=== PATIENT | female | born 1980 | race Caucasian/White ===

== ENCOUNTER → 2016-11-30 | Outpatient (CLI) | payer BC, OTHER ==
[~2016-11-30] MED LIST: ASCAUNK; B-12 INJECTIONS; CALCTAB5 PO; CHOL400C7 PO; PRENTAB26 PO
[2016-11-30 13:09] LABS: BASO % 0.1 %; BASO ABS # 0.01 K/uL (0-0.2); COMPLETE YES; HEMATOCRIT 37.3 % (37-47); IG% 0.1 %; LYMPH % 35.5 %; LYMPH ABS # 2.81 K/uL (1.2-3.4); MEAN CELL VOLUME 84.2 fL (80-100); MEAN CORPUSCULAR HEMOGLOBIN 27.5 pg (25-34); MEAN CORPUSCULAR HGB CONC 32.7 g/dl (32-36); MEAN PLATELET VOLUME 10.1 fL (7.4-10.4); MONO % 9.1 %; NEUT % 54.2 %; PLATELET COUNT 394 K/uL (130-400); RED BLOOD COUNT 4.43 M/uL (4.2-5.4); WHITE BLOOD COUNT 7.92 K/uL (4.8-10.8)
[2016-11-30 13:48] LABS: ALT/SGPT 16 U/L (12-78); BLOOD UREA NITROGEN 13 mg/dl (7-18); BUN/CREATININE RATIO 18.4 (10-20); CARBON DIOXIDE 28 mmol/L (21-32); CHLORIDE 106 mmol/L (98-107); CHOLESTEROL 198 mg/dl (0-200); GLUCOSE 81 mg/dl (70-99); POTASSIUM 3.6 mmol/L (3.5-5.1); SODIUM 140 mmol/L (136-145); TRIGLYCERIDES 78 mg/dl (0-150); VERY LOW DENSITY LIPOPROT CALC 16 mg/dl
[2016-11-30 13:49] LABS: CALCIUM 9.3 mg/dl (8.5-10.1)
[2016-11-30 13:52] LABS: ALB/GLOB RATIO 0.8 (0.9-2); ALKALINE PHOSPHATASE 91 U/L (45-117); AST/SGOT 11 U/L (15-37); FERRITIN 9.1 ng/ml (8.0-388.0); HDL CHOLESTEROL 66 mg/dl; LDL CHOLESTEROL CALCULATED 116 mg/dl; TOTAL IRON BINDING CAPACITY 414 mcg/dl (250-450)
[2016-11-30 23:46] LABS: RUBELLA SCREEN IgG (AT CCH) IMMUNE (IMMUNE)
== END | disposition home or self-care (01) ==
LOC: C.LABMFLN 09:35
PROVIDERS: ATTEND Physician Assistant
DX: Z02.1 Encounter for pre-employment examination (principal)

== ENCOUNTER → 2017-02-15 | Outpatient (CLI) | payer BC | END | disposition home or self-care (01) | LOC: C.LABMFLN 16:34 | PROVIDERS: ATTEND Family Medicine | DX: J02.9 Acute pharyngitis, unspecified (principal) ==

== ENCOUNTER → 2017-04-12 | Outpatient (CLI) | payer BC ==
[2017-04-12 11:56] LABS: URINE APPEARANCE CLEAR (CLEAR); URINE BILIRUBIN NEG (NEG); URINE COLOR YELLOW; URINE NITRITE NEG (NEG); URINE PH 6.5 (4.5-7.5); URINE SPECIFIC GRAVITY 1.021 (1.000-1.030); UROBILINOGEN NEG (NEG)
[2017-04-12 12:03] LABS: MANUAL MICROSCOPIC REQUIRED? NO; REVIEW REQ? NO
== END | disposition home or self-care (01) ==
LOC: C.LABSPEC 11:18
PROVIDERS: ATTEND Obstetrics & Gynecology
DX: O09.521 Supervision of elderly multigravida, first trimester (principal)

== ENCOUNTER → 2017-04-19 | Outpatient (CLI) | payer BC ==
[2017-04-19 14:15] LABS: BASO % 0.2 %; BASO ABS # 0.02 K/uL (0-0.2); COMPLETE YES; EOS % 0.6 %; HEMATOCRIT 37.3 % (37-47); IG% 0.2 %; LYMPH % 27.9 %; LYMPH ABS # 2.42 K/uL (1.2-3.4); MEAN CORPUSCULAR HEMOGLOBIN 27.7 pg (25-34); MEAN CORPUSCULAR HGB CONC 33.8 g/dl (32-36); MEAN PLATELET VOLUME 10.7 fL (7.4-10.4); MONO % 7.7 %; NEUT % 63.4 %; PLATELET COUNT 433 K/uL (130-400); RED BLOOD COUNT 4.55 M/uL (4.2-5.4); WHITE BLOOD COUNT 8.68 K/uL (4.8-10.8)
== END | disposition home or self-care (01) ==
LOC: C.LAB1850 12:35
PROVIDERS: ATTEND Obstetrics & Gynecology
DX: Z01.419 Encounter for gynecological examination (general) (routine) without abnormal findings (principal); O09.521 Supervision of elderly multigravida, first trimester

== ENCOUNTER → 2017-04-19 | Outpatient (CLI) | payer BC ==
[2017-04-22 10:12] LABS: CHLAMYDIA TRACH RNA*** NOT DETECTED (NOT DETECTED); GC (NEIS GONORRHOEAE)RNA** NOT DETECTED (NOT DETECTED)
== END | disposition home or self-care (01) ==
LOC: C.LABSPEC 17:07
PROVIDERS: ATTEND Obstetrics & Gynecology
DX: O09.521 Supervision of elderly multigravida, first trimester (principal)

== ENCOUNTER → 2017-04-19 | Outpatient (CLI) | payer BC | END | disposition home or self-care (01) | LOC: C.PAPS 16:56 | PROVIDERS: ATTEND Obstetrics & Gynecology | DX: Z01.419 Encounter for gynecological examination (general) (routine) without abnormal findings (principal) ==

== ENCOUNTER → 2017-06-14 | Outpatient (CLI) | payer BC ==
[2017-06-14 17:53] LABS: GTGD 50 Grams
[2017-06-19 14:17] LABS: AFP CONCENTRATION 22.3 NG/ML; AFP MULTIPLE OF MEDIAN 0.91; AFPTS GESTATIONAL AGE 16.7 WEEKS; AFPTS INSULIN DEP DIABETIC? NO; AFPTS MATERNAL WT 281 LBS; ALPHA-FETOPROTEIN RACE CAUCASIAN=W; CIGARETTE SMOKER? NOT PROVIDED; EDD DETERMINED BY ULTRASOUND; HISTORY OF NTD NO; REPEAT SAMPLE? NO
== END | disposition home or self-care (01) ==
LOC: C.LAB1850 16:10
PROVIDERS: ATTEND Obstetrics & Gynecology
DX: O09.522 Supervision of elderly multigravida, second trimester (principal)

== ENCOUNTER → 2017-09-06 | Outpatient (CLI) | payer BC ==
[2017-09-06 17:30] LABS: HEMATOCRIT 32.6 % (37-47); HEMOGLOBIN 10.8 g/dL (12.0-16.0)
== END | disposition home or self-care (01) ==
LOC: C.LAB1850 16:57
PROVIDERS: ATTEND Obstetrics & Gynecology
DX: O09.523 Supervision of elderly multigravida, third trimester (principal)

== ENCOUNTER 2017-09-26 15:00 | Emergency (ER) | payer BC ==
[~2017-09-26] VITALS: Ht 154.9 cm; Wt 135.0 kg
[~2017-09-26 15:00] MED LIST changes: -PRENTAB26 PO
[2017-09-26 15:02] VITALS: TEMP 37; Ht 154.9 cm; Wt 135.0 kg
[2017-09-26] MEDS ORDERED: CYNI1000 IM (15:19)
[2017-09-26] MEDS ORDERED: FERRTAB18 PO (15:19)
[2017-09-26] MEDS ORDERED: HYDR1INJ12 IM (15:19)
[2017-09-26] MEDS ORDERED: SODIUM CHLORIDE 0.9% 1000ML 1,000 ML IV STA (15:41)
[2017-09-26 16:08] LABS: EOS % 0.1 %; EOS ABS # 0.01 K/uL (0-0.5); HEMOGLOBIN 11.4 g/dL (12.0-16.0); IG# 0.08 K/uL (0.00-0.02); LYMPH % 8.8 %; LYMPH ABS # 1.53 K/uL (1.2-3.4); MEAN CELL VOLUME 81.5 fL (80-100); MEAN CORPUSCULAR HEMOGLOBIN 27.3 pg (25-34); MEAN CORPUSCULAR HGB CONC 33.5 g/dl (32-36); MONO % 5.7 %; MONO ABS # 0.99 K/uL (0.11-0.59); NEUT % 84.9 %; PLATELET COUNT 410 K/uL (130-400); RED CELL DISTRIBUTION WIDTH CV 13.8 % (11.5-14.5); RED CELL DISTRIBUTION WIDTH SD 40.7 fL (36.4-46.3); WHITE BLOOD COUNT 17.31 K/uL (4.8-10.8)
[2017-09-26 16:23] LABS: ALBUMIN 2.5 gm/dl (3.4-5.0); CALCIUM 8.9 mg/dl (8.5-10.1); CREATININE 0.51 mg/dl (0.60-1.20); POTASSIUM 3.2 mmol/L (3.5-5.1); URIC ACID 3.7 mg/dl (2.6-7.2)
[2017-09-26 16:34] LABS: TOTAL PROTEIN 6.9 gm/dl (6.4-8.2)
[2017-09-26 17:03] VITALS: BP 177/117; PULSE 106; O2SAT 98
--- NOTE | 2017-09-26 17:05 | EMERGENCY ROOM VISIT NOTE ---
History First contact with patient: 15:18 Chief Complaint: VOMITING Stated Complaint: SUDDEN NIVID,31 WEEKS WITH CONTRACTIONS Nursing Triage Summary: HAS BEEN NAUSEATED SINCE NOT EATING BUT WHEN SHE EATS EMESIS History of Present Illness The patient is a 36 year old female who presents to the Emergency Room via private vehicle accompanied by female with complaints of "sudden onset nausea, vomiting, diarrhea around 11:30 AM". The patient states that she is 31 weeks and also has been experiencing contractions with this. She states she also has some epigastric abdominal pain. The gallbladder is surgically absent. She states that she has been trying to tolerate p.o. fluids and food without success. She has had watery diarrhea. There is been 8-9 episodes and has been light brown in nature. She took Tylenol this morning around 8 or 9 AM. She has associated chills, headache and sharp abdominal pain inferiorly with crampy sensation inferiorly that is progressing and lasting about 15 seconds in duration. She denies any fevers, melena, hematochezia, hematemesis, vaginal bleeding, vaginal discharge, urinary symptoms. She denies any decrease in activity. She has a history of ventral hernia and pernicious anemia. Review of Systems A complete 10-point Review of Systems was discussed with the patient, with pertinent positives and negatives listed in the History of Present Illness. All remaining Review of Systems questions can be considered negative unless otherwise specified. Past Medical/Surgical History Medical Problems: (1) Current/Historical Medications Scheduled Cyanocobalamin (Cyanocobalamin), 1,000 MCG IM Mo Hydroxyprogesterone Caproate (Sol), 750 MG IM WK Iron-Vitamin C (Vitron-C), 1 TAB PO DAILY Multivit/Min/Iron/Fol Ac/Pren ( Vitamin), 1 TAB PO DAILY Physical Exam Vital Signs Date Time Temp Pulse Resp B/P (MAP) Pulse Ox O2 Delivery O2 Flow Rate FiO2 09/26/17 17:03 98 Room Air 09/26/17 17:03 106 16 177/117 98 Room Air 09/26/17 15:02 37.0 135 22 156/102 99 Physical Exam VITAL SIGNS - Vital signs and nursing notes were reviewed. Hypertensive and tachycardic upon arrival. She is afebrile. GENERAL -36-year-old female appearing her stated age who is in no acute distress. Communicates well with provider and answers questions appropriately. SKIN - Without rashes. No petechial rashes. HEAD - NC/AT. EYES - Sclera anicteric. EARS - No deformities of external structures noted on gross examination bilaterally. NOSE - Midline and without cyanosis. No epistaxis or purulent drainage noted. MOUTH/OROPHARYNX - Without perioral cyanosis. NECK - Neck with FROM. LUNGS - Chest wall symmetric without accessory muscle use, intercostals retractions, or central cyanosis. Normal vesicular breath sounds CTA B/L. No wheezes, rales, or rhonchi appreciated. CARDIAC - RRR with S1/S2. No murmur, rubs, or gallops appreciated. ABDOMEN - Abdominal contour with evidence of gestation without pulsations or visible masses. BS normoactive all four quadrants. Epigastric abd pain noted.No unusual palpable masses, hepatosplenomegaly, or ascites noted. EXTREMITIES - No clubbing or peripheral cyanosis. No pretibial edema present. NEUROLOGIC - Cranial nerves II through XII grossly intact. Medical Decision & Procedures Laboratory Results 09/26/17 15:55 Red Blood Count 4.17, Mean Corpuscular Volume 81.5, Mean Corpuscular Hemoglobin 27.3, Mean Corpuscular Hemoglobin Concent 33.5, Mean Platelet Volume 10.0, Neutrophils (%) (Auto) 84.9, Lymphocytes (%) (Auto) 8.8, Monocytes (%) (Auto) 5.7, Eosinophils (%) (Auto) 0.1, Basophils (%) (Auto) 0.0, Neutrophils # (Auto) 14.70, Lymphocytes # (Auto) 1.53, Monocytes # (Auto) 0.99, Eosinophils # (Auto) 0.01, Basophils # (Auto) 0.00 09/26/17 15:55 Test 09/26/17 15:55 09/26/17 17:20 White Blood Count 17.31 K/uL (4.8-10.8) Red Blood Count 4.17 M/uL (4.2-5.4) Hemoglobin 11.4 g/dL (12.0-16.0) Hematocrit 34.0 % (37-47) Mean Corpuscular Volume 81.5 fL (80-100) Mean Corpuscular Hemoglobin 27.3 pg (25-34) Mean Corpuscular Hemoglobin Concent 33.5 g/dl (32-36) Platelet Count 410 K/uL (130-400) Mean Platelet Volume 10.0 fL (7.4-10.4) Neutrophils (%) (Auto) 84.9 % Lymphocytes (%) (Auto) 8.8 % Monocytes (%) (Auto) 5.7 % Eosinophils (%) (Auto) 0.1 % Basophils (%) (Auto) 0.0 % Neutrophils # (Auto) 14.70 K/uL (1.4-6.5) Lymphocytes # (Auto) 1.53 K/uL (1.2-3.4) Monocytes # (Auto) 0.99 K/uL (0.11-0.59) Eosinophils # (Auto) 0.01 K/uL (0-0.5) Basophils # (Auto) 0.00 K/uL (0-0.2) RDW Standard Deviation 40.7 fL (36.4-46.3) RDW Coefficient of Variation 13.8 % (11.5-14.5) Immature Granulocyte % (Auto) 0.5 % Immature Granulocyte # (Auto) 0.08 K/uL (0.00-0.02) Anion Gap 10.0 mmol/L (3-11) Est Creatinine Clear Calc Drug Dose 197.1 ml/min Estimated GFR () 142.4 Estimated GFR (Non- 122.8 BUN/Creatinine Ratio 19.9 (10-20) Uric Acid 3.7 mg/dl (2.6-7.2) Calcium Level 8.9 mg/dl (8.5-10.1) Magnesium Level 1.8 mg/dl (1.8-2.4) Total Bilirubin 0.3 mg/dl (0.2-1) Aspartate Amino Transf (AST/SGOT) 15 U/L (15-37) Alanine Aminotransferase (ALT/SGPT) 13 U/L (12-78) Alkaline Phosphatase 114 U/L (45-117) Total Protein 6.9 gm/dl (6.4-8.2) Albumin 2.5 gm/dl (3.4-5.0) Globulin 4.4 gm/dl (2.5-4.0) Albumin/Globulin Ratio 0.6 (0.9-2) Lipase 128 U/L (73-393) Thyroid Stimulating Hormone (TSH) 1.050 uIu/ml (0.300-4.500) Date/Time Source Procedure Growth Status 09/26/17 16:10 Stool C.difficile Toxin B Gene (PCR) - Final No C. difficile toxin B gene detected Complete Medications Administered Medications (Trade) Dose Ordered Sig/Britt Route Start Time Stop Time Status Last Admin Dose Admin Sodium Chloride 1,000 ml @ 999 mls/hr Q1H1M STAT IV 09/26/17 15:41 09/26/17 16:41 DC 09/26/17 15:41 999 MLS/HR Medical Decision Patient was seen and evaluated as above. She presents to us today with nausea, vomiting and diarrhea with abrupt onset around 11:30 AM with associated epigastric abdominal pain and lower pelvic contractions. She declines pain medication and nausea medication. She was given fluids. After obtaining a thorough history and physical examination the above work up was performed. Leukocytosis of 17.31. No emergent anemia. Metabolic panel does not reveal any evidence of kidney or liver failure. Platelet count high at 410. Potassium 3.2. Creatinine at 0.51. TSH and lipase normal. Urine reveals 1+ ketones and epithelial cells. From emergency department standpoint I suspect that she is likely experiencing a viral GI bug. I did discuss the case with the on-call FREELANCE PROGRAMMER/APP DEVELOPER who accepted the patient to the labor and delivery for further evaluation for her contractions. After nearly 1 L of fluid here the patient's tachycardia improved. Her hypertension did persist. Uric acid negative. She was discharged from the emergency department with escort to take her to the floor for continuation of fluids and management. In the evaluation and treatment of this patient the following differential diagnoses were entertained: Viral GI illness, pancreatitis, active labor, appendicitis, preeclampsia, UTI, among others. Impression Primary Impression: Nausea, vomiting, and diarrhea Additional Impression: 31 weeks gestation of Departure Information Dispostion Home / Self-Care Condition GOOD Referrals Bernie Lozoya M.D. (PCP) Patient Instructions [facility] Additional Instructions You were seen in the emergency department for epigastric abdominal pain, nausea , vomiting, diarrhea and contractions. At this time you will be discharged from the emergency department to go to the labor and delivery floor for evaluation by 1 of the obstetricians. I do recommend going directly there. Please return with any new/concerning symptoms. Thank you for your time. Problem Qualifiers
[2017-09-26] MEDS ORDERED: PRENTAB26 PO (18:23)
[2017-09-26] MEDS ORDERED: CALC500C70 PO (19:18)
--- NOTE | 2017-09-27 13:17 | Pharmacy Progress Note ---
ED Pharmacist Culture FollowUp Date of Service: Sep 27, 2017. Received notification from micro that patient's stool cx is growing campylobacter species. Patient had presented with NVD yesterday as well as contractions (she is 31 weeks ). Patient was not discharged to home from the ED rather she was admitted to [facility]. I contacted [facility] regarding these results. The patient had been hydrated and discharged home today. The RN will notify Dr Branch of these cx stool results. No further action required from ED standpoint.
== END 2017-09-26 17:40 | disposition home or self-care (01) ==
LOC: C.EDB 15:01
DX: R11.2 Nausea with vomiting, unspecified (principal); R19.7 Diarrhea, unspecified; O09.523 Supervision of elderly multigravida, third trimester

== ENCOUNTER 2017-09-26 17:48 | Observation (INO) | payer BC ==
[~2017-09-26] VITALS: Ht 154.9 cm; Wt 134.5 kg
[~2017-09-26 17:48] MED LIST changes: +CYNI1000 IM; +FERRTAB18 PO; +HYDR1INJ12 IM
[2017-09-26] MEDS ORDERED: ACETAMINOPHEN 1000 MG/100 ML IV IV STA (18:13)
[2017-09-26] MEDS ORDERED: PRENTAB26 PO (18:23)
[2017-09-26] MEDS ORDERED: IV FLUIDS COMPLETED PRN (18:30)
[2017-09-26] MEDS: NSS + 20MEQ KCL 1000ML 1,000 ML IV SCH ×2 (18:46→23:11)
[2017-09-26 19:18] VITALS: Ht 154.9 cm; Wt 134.5 kg
[2017-09-26] MEDS ORDERED: CALC500C70 PO (19:18)
--- NOTE | 2017-09-27 04:44 | Discharge Instructions ---
Discharge Instructions Date of Service Sep 27, 2017. Admission Gastroenteritis, Uterine contractions Discharge Discharge Diagnosis / Problem: Gastroenteritis, resolution of contractions Discharge Goals Goal(s): Continuing OB care Activity Recommendations Activity Limitations: resume your previous activity . Instructions / Follow-Up Instructions / Follow-Up Continue to sip diluted gatorade until diarrhea resolves. Monitor movements and notify OB if unable to feel 10 movements in an hour. Notify OB if contractions return and become closer than 5 minutes apart. Current Hospital Diet Patient's current hospital diet: Regular Diet Discharge Diet Recommended Diet: Regular Diet Pending Studies Studies pending at discharge: no Medical Emergencies . Who to Call and When: Medical Emergencies: If at any time you feel your situation is an emergency, please call 911 immediately. . Non-Emergent Contact Non-Emergency issues call your: Primary Care Provider . . "Provider Documentation" section prepared by Destini Ga. .
== END 2017-09-27 04:55 | disposition home or self-care (01) ==
LOC: C.LD 17:48 → C.OPB 17:48 → C.LD 18:00
PROVIDERS: ADMIT Obstetrics & Gynecology; ATTEND Obstetrics & Gynecology
DX: O09.523 Supervision of elderly multigravida, third trimester (principal); K52.9 Noninfective gastroenteritis and colitis, unspecified; O99.213 Obesity complicating pregnancy, third trimester; E66.01 Morbid (severe) obesity due to excess calories; Z3A.31 31 weeks gestation of pregnancy

== ENCOUNTER → 2017-10-03 | Outpatient (CLI) | payer BC ==
[~2017-10-03] MED LIST changes: -ASCAUNK; -B-12 INJECTIONS; +CALC500C70 PO; -CALCTAB5 PO; -CHOL400C7 PO; -CYNI1000 IM; +PRENTAB26 PO
== END | disposition home or self-care (01) ==
LOC: C.LABSPEC 17:00
PROVIDERS: ATTEND Obstetrics & Gynecology
DX: O47.9 False labor, unspecified (principal)

== ENCOUNTER → 2017-10-28 | Outpatient (CLI) | payer BC | END | disposition home or self-care (01) | LOC: C.LABSPEC 11:39 | PROVIDERS: ATTEND Obstetrics & Gynecology | DX: O09.523 Supervision of elderly multigravida, third trimester (principal) ==

== ENCOUNTER 2017-11-04 23:07 | Outpatient (CLI) | payer BC ==
[~2017-11-04] VITALS: Ht 154.9 cm; Wt 135.0 kg
[2017-11-04 23:50] VITALS: Ht 154.9 cm; Wt 135.0 kg
== END 2017-11-05 00:07 | disposition home or self-care (01) ==
LOC: C.OPB 23:07 → C.LD 23:09 → C.OPB 11-05 00:07
PROVIDERS: ATTEND Obstetrics & Gynecology
DX: Z34.83 Encounter for supervision of other normal pregnancy, third trimester (principal); Z3A.37 37 weeks gestation of pregnancy

== ENCOUNTER 2017-11-14 21:28 | Inpatient (IN) | payer BC ==
[~2017-11-14] VITALS: Ht 154.9 cm; Wt 130.0 kg
[~2017-11-14 21:28] MED LIST changes: -HYDR1INJ12 IM
[2017-11-14] MEDS ORDERED: LACTATED RINGER'S 1000ML 1,000 ML IV SCH (22:06)
[2017-11-14 22:15] VITALS: Ht 154.9 cm; Wt 130.0 kg
[2017-11-14] MEDS ORDERED: BUPIVACAINE 0.25% 30 ML VIAL ONE (22:20)
[2017-11-14] MEDS ORDERED: EpHEDrine SULFATE INJ 50 MG/ML AMP ONE (22:20)
[2017-11-14] MEDS ORDERED: FENTANYL CITRATE INJ 50 MCG/1 ML 2 ML VIAL ONE (22:21)
[2017-11-14] MEDS ORDERED: FENTANYL 2MCG/ML ROPIV 1.25MG/ML 100ML BAG EPI ONE (22:22)
[2017-11-14] MEDS: LACTATED RINGER'S 1000ML 1,000 ML IV PRN ×2 (22:30→23:30)
[2017-11-14] MEDS ORDERED: HYDR1INJ12 IM (22:35)
[2017-11-14 22:39] LABS: HEMATOCRIT 35.4 % (37-47); HEMOGLOBIN 11.5 g/dL (12.0-16.0); MEAN CELL VOLUME 78.7 fL (80-100); MEAN CORPUSCULAR HEMOGLOBIN 25.6 pg (25-34); MEAN CORPUSCULAR HGB CONC 32.5 g/dl (32-36); MEAN PLATELET VOLUME 10.4 fL (7.4-10.4); PLATELET COUNT 420 K/uL (130-400); RED CELL DISTRIBUTION WIDTH CV 14.3 % (11.5-14.5); RED CELL DISTRIBUTION WIDTH SD 40.2 fL (36.4-46.3); WHITE BLOOD COUNT 12.96 K/uL (4.8-10.8)
[2017-11-14] MEDS ORDERED: CEFAZOLIN IV 2,000 MG in SYRINGE 0 ML IV SCH (22:45)
[2017-11-14] MEDS ORDERED: CEFAZOLIN IV 2,000 MG in DEXTROSE 5% 50ML 50 ML IV ONE (22:45)
[2017-11-14] MEDS ORDERED: CEFAZOLIN IV 1,000 MG in DEXTROSE 5% 50ML 50 ML IV PRN (22:45)
[2017-11-14] MEDS ORDERED: CEFAZOLIN IV 1,000 MG in SYRINGE 0 ML IV PRN (23:00)
[2017-11-15] MEDS ORDERED: LACTATED RINGER'S 1000ML 500 ML IV PRN ×2 (00:04→04:33)
[2017-11-15] MEDS ORDERED: NALOXONE HCL INJ 1 MG in SODIUM CHLORIDE 0.9% 1000ML 1,000 ML IV PRN ×4 (00:04)
[2017-11-15] MEDS ORDERED: ONDANSETRON INJ 2 MG/ML 2 ML VIAL IV PRN (00:15)
[2017-11-15] MEDS ORDERED: NALBUPHINE HCL INJ 10 MG/ML AMP IV PRN (00:15)
[2017-11-15] MEDS ORDERED: EpHEDrine SULFATE INJ 50 MG/ML AMP IV PRN (00:15)
[2017-11-15] MEDS ORDERED: FENTANYL 2MCG/ML ROPIV 1.25MG/ML 100ML BAG EPI PRN (00:15)
[2017-11-15] MEDS ORDERED: PROMETHAZINE HCL INJ 25 MG in SODIUM CHLORIDE 0.9% 50ML 50 ML IV PRN (00:15)
[2017-11-15] MEDS ORDERED: NALOXONE HCL INJ 0.4 MG/1 ML VIAL/CARP IV PRN (00:15)
[2017-11-15] MEDS ORDERED: DiphenhydrAMINE HCL 50 MG/ML VIAL IV PRN (00:15)
[2017-11-15] MEDS ORDERED: OXYTOCIN 30 UNITS/500ML NSS IV ONE (02:33)
[2017-11-15] MEDS ORDERED: OXYTOCIN 30 UNITS/500ML NSS IV PRN ×2 (04:45→06:45)
[2017-11-15] MEDS ORDERED: ACETAMINOPHEN/CODEINE 300/30MG TAB PO PRN ×2 (06:45)
[2017-11-15] MEDS ORDERED: DIPHTHERIA/TETANUS/PERTUSSIS 0.5 ML SYR/VIAL IM. ONE (06:45)
[2017-11-15] MEDS ORDERED: BENZOCAINE 20% AER SPR 82.5 GM CAN EXT PRN ×2 (06:45→15:30)
[2017-11-15] MEDS ORDERED: LANOLIN OINT EXT PRN ×2 (06:45→15:30)
[2017-11-15] MEDS ORDERED: HYDROCORTISONE ACETATE 25 MG SUPP PR PRN ×2 (06:45→15:30)
[2017-11-15] MEDS ORDERED: SUPERCREAM 0.870 % 15GM JAR EXT PRN ×2 (06:45→15:30)
--- NOTE | 2017-11-15 07:59 | DELIVERY SUMMARY ---
DATE OF OPERATION: 11/15/2017 FINDINGS: Viable female with Apgars of 8 and 9. Baby delivered spontaneously over a midline second-degree laceration. Cord blood samples obtained. Placenta delivered spontaneously. Laceration repaired with 4-0 Vicryl in routine fashion. ESTIMATED BLOOD LOSS: 300 mL. LABOR NOTE: The patient is a 37-year-old 4, para 3 with an EDC of 11/24/2017 by first trimester ultrasound who was admitted at 38+ weeks gestational age in active labor. The patient states that contractions began in intensity at approximately 1830 hours on day of admission. The patient denied rupture of membranes or vaginal bleeding. The patient with a previous history of a successful in 2011. She had a section in 2006 for failure to progress. Her initial delivery was a vaginal delivery in 2003. The patient has been followed with the advanced maternal age protocol with normal third trimester testing. Laboratory values for the show a blood type of A positive, antibody negative, rubella immune, hepatitis B negative. She had a negative cell-free DNA screening with a normal 1-hour Glucola x2 and a positive third trimester beta strep culture. Upon admission, the patient was 5 cm dilated, 100% effaced, and -2 station. Tracing was category 1. The patient with GBS positive and PENICILLIN ALLERGY WITH HIVES. We discussed this and we treated this with cephalosporin, Ancef 2 g IV loading dose and then 1 g IV every 6 hours until delivery. The patient requested and received an epidural from anesthesia. Following placement of the epidural, she had artificial rupture of membranes for clear fluid at 7 cm. Three hours later, the patient with an anterior lip, contractions were mild, and Pitocin augmentation was initiated. After initiation of the Pitocin, she progressed to full dilatation and began her second stage. She pushed for approximately 20 minutes delivering the viable female . Cord was clamped and cut. Cord blood sample was obtained. Placenta delivered spontaneously. Inspection of the perineum showed a midline second-degree laceration. Laceration was repaired with 4-0 Vicryl in routine fashion. Estimated blood loss 300 mL. I attest to the content of the Intraoperative Record and any orders documented therein. Any exception s are noted below.
[2017-11-15] MEDS: DOCUSATE SODIUM 100 MG CAP PO SCH ×2 (08:00→20:58)
[2017-11-15] MEDS: PRENATAL VITAMIN TAB PO SCH (08:00)
[2017-11-15] MEDS: FERROUS SULFATE 325 MG TAB PO SCH (08:00)
[2017-11-15 10:25] VITALS: BP 139/75; PULSE 88; TEMP 36.6; O2SAT 96
[2017-11-15 12:15] VITALS: BP 153/79; PULSE 94; TEMP 36.7; O2SAT 97
[2017-11-15] MEDS: ACETAMINOPHEN 325 MG TAB PO PRN ×2 (12:51→20:59)
[2017-11-15] MEDS ORDERED: OXYCODONE/ACETAMINOPHEN 5-325 TAB PO PRN ×2 (14:15→15:30)
[2017-11-15 15:30] VITALS: BP 139/83; PULSE 88; TEMP 36.5
[2017-11-15] MEDS ORDERED: ACETAMINOPHEN 325 MG TAB PO PRN (15:30)
--- NOTE | 2017-11-15 16:31 | Anesthesia Procedure Note ---
Anesthesia Epidural Removal Nt Date & Time Nov 15, 2017 at 16:30 Vital Signs Pain Intensity: 3.0 Vital Signs Past 12 Hours Date Time Temp Pulse Resp B/P (MAP) Pulse Ox O2 Delivery O2 Flow Rate FiO2 11/15/17 12:15 36.7 94 20 153/79 (103) 97 Room Air 11/15/17 10:25 96 Room Air 11/15/17 10:25 36.6 88 18 139/75 (96) 96 Room Air Notes Mental Status: alert / awake / arousable, participated in evaluation Nausea / Vomiting: adequately controlled Pain: adequately controlled Airway Patency, RR, SpO2: stable & adequate BP & HR: stable & adequate Hydration State: stable & adequate Neuraxial Anesthesia: was administered, sensory block is resolving Anesthetic Complications: no major complications apparent, pt satisfied with anesthetic care Epidural: removed without complications, with tip intact
[2017-11-15] MEDS ORDERED: DOCUSATE SODIUM 100 MG CAP PO SCH (20:00)
[2017-11-15 20:45] VITALS: BP 139/88; PULSE 86; TEMP 36.9
[2017-11-15 23:35] VITALS: BP 131/84; PULSE 87; TEMP 36.7
[2017-11-16 04:30] VITALS: BP 132/84; PULSE 76; TEMP 36.6
[2017-11-16] MEDS: ACETAMINOPHEN 325 MG TAB PO PRN ×2 (04:45→08:35)
--- NOTE | 2017-11-16 06:37 | Discharge Instructions ---
Discharge Instructions Date of Service Nov 16, 2017. Admission Reason for Admission: Check Labor Discharge Discharge Diagnosis / Problem: vaginal delivery Discharge Goals Goal(s): Routine recovery after delivery Medications Continue Dispensed Medications: supercream, dermaplast, tucks, lansinoh Activity Recommendations Activity Limitations: per Instructions/Follow-up section . Instructions / Follow-Up Instructions / Follow-Up ACTIVITY RECOMMENDATIONS: * Gradual return to full activity over the next 2-3 weeks. * No lifting - nothing heavier than baby over the next 2-3 weeks. * Do not engage in vigorous exercise, sexual activity or sports until cleared by your physician. * Do not drive or operate any motorized equipment until cleared by your physician. * You may shower/bathe daily. MEDICATIONS: For discomfort or pain, you may use Acetaminophen (Tylenol), Ibuprofen (Advil), or Naproxen (Aleve) following the package directions. For constipation you may use Colace following the package directions. BREAST CARE: If you are not breast feeding: * Wear a supportive bra 24 hours a day for one to two weeks. * Avoid stimulating your breasts and nipples as much as possible during the first few weeks after delivery. * When taking a shower, have the warm water hit your back, not breasts. * When your breasts feel full, apply ice packs. Usually three to four times a day helps ease the discomfort. * Take a mild pain medication (Tylenol / Motrin) when you are uncomfortable. If breast feeding: * Use breast milk to lubricate nipples. Lansinoh cream may be used for sore nipples. You do not need to remove cream prior to breast feeding. If using a different brand of cream, check the label for directions regarding removal of cream prior to nursing. * Wear a supportive bra. * If having problems with breasts or breast feeding, call a mobile sales consultant or your health care provider. EPISIOTOMY CARE: After delivery, if you have an episiotomy (stitches), the following steps will ease discomfort and aid healing. * For the first 24 hours after delivery, place ice packs next to your episiotomy to help reduce swelling. * After the first 24 hour-period, sitz baths, either portable or in the tub, are suggested. A shower with a shower arm sprayed over the episiotomy may be comforting. * [place] care should be done after each voiding and bowel movement. Squirt warm water from a plastic bottle over the perineum (region of the body between the anus and urinary opening) and pat dry. * Use Dermoplast to ease discomfort. Shake container. [place] directly over the episiotomy. Place a Tucks on a clean sanitary pad next to your episiotomy. SPECIAL CARE INSTRUCTIONS: When you are discharged from the hospital, it is important for you to follow the instructions listed below: * During the first week at home, you should be able to care for yourself and your baby. In addition, the usual light household activities are encouraged. * Limit your activities to the way you feel. Do not try to clean the house or move furniture. Be sensible. * If you actively engage in sports and have done so up until the time of your delivery, you may resume these activities as soon as you feel able. This may take up to one month or even longer. Use good judgment. * Continue to take your vitamins for at least six weeks after the of your baby. * Your diet need not be limited unless you were on a special diet before your delivery. Breast-feeding mothers need around 2500 calories per day and at least 64-80 ounces of fluid per day (8 to 10 glasses). * You should eat foods from the four major food groups. Crash diets or fad diets are to be avoided. Eating lean meats, fresh fruits and vegetables, low-fat dairy products, high fiber foods and a regular exercise program, will help you get back to your pre- weight without putting your health at risk. * Constipation is sometimes a problem after delivery. Take a mild laxative as needed. If breast feeding, Milk of Magnesia is acceptable to use. You may use a suppository or Fleets enema if no episiotomy. * A daily shower or tub bath is suggested. Be sure to thoroughly and gently dry the perineum. * A bloody vaginal discharge will usually continue until around four weeks post . A small amount of bleeding may continue for as long as six weeks. Vaginal discharge changes from the bright red bleeding after delivery to pink then brownish and finally yellowish-pink before becoming white and disappearing. * Bleeding may increase with activity. Your first period may come in 4-8 weeks. If you are breast feeding, your period may be delayed even longer. * [place] (sex) can begin whenever both you and your partner feel comfortable and do not have any form of genital infection. It is recommended that you wait at least six weeks for internal and external healing to occur. If you have questions, please talk to your health care practitioner. A condom should be used to prevent infection and . * Foreplay, gentle intercourse and lubrication is very important the first several times to prevent pain. A water-based lubricant such as K-Y jelly or Astroglide may be used. * If you have RH negative blood and your baby is RH positive, you will receive RHOGAM by injection prior to discharge. The nurse will give you a card to keep with you that has the date and place that you received RHOGAM after delivery. * During your care, you had a Rubella screen done to check for the presence of rubella antibodies in your blood. If your test was negative, you will receive a Rubella vaccine prior to discharge. This vaccine may cause a fever, soreness at the injection site and flu-like symptoms. If these symptoms persist, notify your health care practitioner. is not advised for one month after a Rubella vaccine. * Verbalizes understanding of car seat law as reviewed with patient nursing. * Car Seat hand-out given and reviewed with patient by nursing. * Shaken baby information reviewed with patient by nursing. Call you doctor if: * Heavy bleeding (saturating several pads an hour) or passing clots the size of your fist. * A fever >101 degrees F (38.3 degrees C) on two occasions four hours apart and /or chills. * Unusual pain in the pelvic or vaginal areas. * "Baby Blues" lasting longer than two weeks. If you have any questions or concerns, call your health care practitioner at . FOLLOW UP VISIT: * Please call the office at to schedule a 6 week examination. It is important you keep this appointment. It is important for you to make arrangements for either yearly or twice yearly check-ups thereafter. Current Hospital Diet Patient's current hospital diet: Regular OB Diet Discharge Diet Recommended Diet: Regular Diet, Regular OB Diet Pending Studies Studies pending at discharge: no Medical Emergencies . Who to Call and When: Medical Emergencies: If at any time you feel your situation is an emergency, please call 911 immediately. . Non-Emergent Contact Non-Emergency issues call your: Primary Care Provider, Real Estate Teacher . . "Provider Documentation" section prepared by Toby Mayo. .
[2017-11-16 07:06] LABS: HEMATOCRIT 31.5 % (37-47); HEMOGLOBIN 9.9 g/dL (12.0-16.0)
--- NOTE | 2017-11-16 07:08 | Progress Note ---
Subjective Nov 16, 2017. Subjective conversation w/ patient, physical exam Ambulation: ambulating normally Voiding: no voiding problems Diet Tolerance: Regular Diet Lochia: Small Feeding Type: Breast Feeding Pain: denied any pain issues Review of Systems Constitutional: No fever, No chills Respiratory: No cough, No shortness of breath Cardiac: No chest pain, No palpitations Abdomen: No pain, No nausea, No vomiting Female : No dysuria Objective Vital Signs Date Time Temp Pulse Resp B/P (MAP) Pulse Ox O2 Delivery O2 Flow Rate FiO2 11/16/17 04:30 36.6 76 16 132/84 (100) Room Air 11/15/17 23:35 36.7 87 18 131/84 (100) Room Air 11/15/17 23:35 Room Air 11/15/17 20:45 36.9 86 18 139/88 (105) Room Air 11/15/17 15:30 Room Air 11/15/17 15:30 36.5 88 18 139/83 (101) Room Air 11/15/17 12:15 36.7 94 20 153/79 (103) 97 Room Air 11/15/17 10:25 96 Room Air 11/15/17 10:25 36.6 88 18 139/75 (96) 96 Room Air Physical Exam General Appearance: WELL-APPEARING, WD/WN, NO APPARENT DISTRESS Respiratory/Chest: lungs clear, no respiratory distress Cardiovascular: regular rate, rhythm, no murmur Abdomen: non tender, soft Fundus: Firm, Relation to Umbilicus (at the level of the u) Extremities: non-tender, normal inspection Laboratory Results Last 24 Hours Test 11/16/17 06:57 Assessment and Plan Problem List Medical Problems: (1) 31 weeks gestation of Status: Acute (2) Nausea, vomiting, and diarrhea Status: Acute Post- (1) Day#: 1 Continue Routine Care: 37, F GBS+/RI/A+, h/o PIH, PPD1 Vital reviewed; BP 130-140/75-80, BP max 153/80. Hgb 12.96 on admission--> pending today. Patient is doing well clinically 1. Recovery from vaginal delivery; ambulate, support bf, monitor lochia, control pain 2. Discussed dc planning Resident Physician Supervision Note: I interviewed and examined the patient. Discussed with Dr. Mayo and agree with findings and plan as documented in the note. Any exceptions or clarifications are listed here: Doing well. will watch bps. denies any needs. Documented By: Dasia Carter
[2017-11-16] MEDS ORDERED: PRENATAL VITAMIN TAB PO SCH (08:00)
[2017-11-16] MEDS: DOCUSATE SODIUM 100 MG CAP PO SCH ×2 (08:16→20:03)
[2017-11-16] MEDS: FERROUS SULFATE 325 MG TAB PO SCH (08:16)
[2017-11-16] MEDS: PRENATAL VITAMIN TAB PO SCH (08:16)
[2017-11-16 08:20] VITALS: BP 135/85; PULSE 92; TEMP 36.7
[2017-11-16] MEDS: OXYCODONE/ACETAMINOPHEN 5-325 TAB PO PRN ×2 (15:34→22:45)
[2017-11-16 15:40] VITALS: BP 143/90; PULSE 83; TEMP 36.8
[2017-11-16] MEDS ORDERED: BISACODYL 5 MG TABEC PO SCH (20:00)
[2017-11-16 23:00] VITALS: BP 133/83; PULSE 83; TEMP 36.7; O2SAT 97
--- NOTE | 2017-11-17 07:39 | Progress Note ---
Subjective Nov 17, 2017. Subjective conversation w/ patient, physical exam, lab review Ambulation: ambulating normally Voiding: no voiding problems Diet Tolerance: Regular Diet Lochia: Small Objective Vital Signs Date Time Temp Pulse Resp B/P (MAP) Pulse Ox O2 Delivery O2 Flow Rate FiO2 11/16/17 23:00 97 Room Air 11/16/17 23:00 36.7 83 20 133/83 (100) 97 Room Air 11/16/17 15:40 Room Air 11/16/17 15:40 36.8 83 20 143/90 (107) Room Air 11/16/17 08:20 Room Air 11/16/17 08:20 36.7 92 16 135/85 (102) Room Air Physical Exam General Appearance: WELL-APPEARING Abdomen: non tender Fundus: Firm Extremities: no calf tenderness Assessment and Plan Problem List Medical Problems: (1) 31 weeks gestation of Status: Acute (2) Nausea, vomiting, and diarrhea Status: Acute Post- (1) Day#: 2 Continue Routine Care: Patient doing well meets discharge criteria instructions reviewed
[2017-11-17] MEDS: DOCUSATE SODIUM 100 MG CAP PO SCH (07:58)
[2017-11-17] MEDS: FERROUS SULFATE 325 MG TAB PO SCH (07:59)
[2017-11-17] MEDS: PRENATAL VITAMIN TAB PO SCH (07:59)
[2017-11-17] MEDS: ACETAMINOPHEN 325 MG TAB PO PRN (08:10)
[2017-11-17 08:30] VITALS: BP 136/78; PULSE 106; TEMP 36.6
[2017-11-17 12:00] VITALS: BP_DIAS 78; PULSE 106; TEMP 36.6
== END 2017-11-17 11:59 | disposition home or self-care (01) | DRG 775 ==
LOC: C.OPB 21:28 → C.LD 21:28 → C.OPB 22:07 → C.LD 22:07 → C.OBG 11-15 09:25
PROVIDERS: ADMIT Obstetrics & Gynecology; ATTEND Obstetrics & Gynecology
PROC: 10E0XZZ Delivery of Products of Conception, External Approach (ICD-10-PCS; principal; 2017-11-15)
PROC: 0KQM0ZZ Repair Perineum Muscle, Open Approach (ICD-10-PCS; principal; 2017-11-15)
DX: O34.219 Maternal care for unspecified type scar from previous cesarean delivery (principal); O70.1 Second degree perineal laceration during delivery; O09.523 Supervision of elderly multigravida, third trimester; Z22.330 Carrier of Group B streptococcus; Z3A.38 38 weeks gestation of pregnancy; Z37.0 Single live birth; Z88.0 Allergy status to penicillin